=== PATIENT | female | born 1970 | race Caucasian/White ===

== ENCOUNTER 2021-03-26 07:45 | Day surgery (SDC) | payer BC ==
[~2021-03-26] VITALS: Ht 165.1 cm; Wt 81.0 kg
--- NOTE | 2021-03-26 08:05 | NUR ---
ARRIVED TO UNIT ADMISSION STARTED. CARE TURNED OVER TO TAMMY LUX RN
--- NOTE | 2021-03-26 08:30 | NUR ---
History, Chart, Medications and Allergies reviewed before start of procedure. Lungs clear T/O to Auscultation. Patient confirms NPO status and agrees with scheduled surgery. Patient states colon prep results clear. Pre-Op teaching done. Pt verbalizes understanding.
[2021-03-26] MEDS ORDERED: OXYB5 (08:36)
[2021-03-26] MEDS ORDERED: LEVSOD100 PO (08:36)
[2021-03-26] MEDS ORDERED: ZOLOFT100 M5 PO (08:37)
--- NOTE | 2021-03-26 08:57 | NUR ---
03/26/21 0857 Faisal Agosto History, Chart, Medications and Allergies reviewed before start of procedure. MONITOR INTACT WITH CONTINUOUS PULSE OXIMETRY AND INTERMITTENT BP. 3-LEAD EKG REVIEWED WITH PHYSICIAN PRIOR TO START OF PROCEDURE. O2 VIA N/C INTACT THROUGHOUT SEDATION/PROCEDURE. HURRICAINE SPRAY TO OROPHARYX. Bite Block Placed. PATIENT DETERMINED TO BE ASA APPROPRIATE FOR PROPOFOL SEDATION PRIOR TO START OF PROCEDURE BY DR. DELGADO.
--- NOTE | 2021-03-26 09:38 | NUR ---
PATIENT AWAKE, ALERT AND ORIENTED. REPOSITIONED SELF. PROVIDED PO FLUIDS.
--- NOTE | 2021-03-26 10:05 | NUR ---
Patient up to Ambulate independently. Gait steady. Discharge instructions reviewed with patient. Patient verbalizes understanding. Copy given to patient to take home. Patient States Post-Procedure ride home has been arranged. Discharged via wheelchair to private car for ride home. ALL BELONGINGS RETURNED TO PATIENT.
== END 2021-03-26 10:02 | disposition home or self-care (01) ==
LOC: ORSCMMR 07:45 → ORD 08:30 → ORSCMMR 10:02
PROVIDERS: Internal Medicine Gastroenterology
PROC: 0DB98ZX Excision of Duodenum, Via Natural or Artificial Opening Endoscopic, Diagnostic (ICD-10-PCS; principal; 2021-03-26 08:30)
PROC: 0DB48ZX Excision of Esophagogastric Junction, Via Natural or Artificial Opening Endoscopic, Diagnostic (ICD-10-PCS; principal; 2021-03-26 08:30)
PROC: 0DJD8ZZ Inspection of Lower Intestinal Tract, Via Natural or Artificial Opening Endoscopic (ICD-10-PCS; principal; 2021-03-26 08:30)
PROC: 0DB68ZX Excision of Stomach, Via Natural or Artificial Opening Endoscopic, Diagnostic (ICD-10-PCS; principal; 2021-03-26 08:30)
DX: D50.0 Iron deficiency anemia secondary to blood loss (chronic) (principal); F32.9 Major depressive disorder, single episode, unspecified; E03.9 Hypothyroidism, unspecified; Z79.899 Other long term (current) drug therapy
CPT/HCPCS: 88305; 88342; A9270; J2704; J7120